=== PATIENT | male | born 1995 | race Caucasian/White ===

== ENCOUNTER 2024-10-26 00:38 | Emergency (ER) | payer SELFPAY ==
[~2024-10-26] VITALS: Ht 167.6 cm; Wt 77.0 kg
[2024-10-26 00:41] VITALS: O2SAT 100
[2024-10-26] MEDS ORDERED: FLUORESCEIN SODIUM 1MG/STRIP RIGHTEYE ONE (04:00)
[2024-10-26] MEDS ORDERED: TETRACAINE 0.5% OPHTH DROPS 4ML BOTHEYE ONE (04:00)
[2024-10-26] MEDS ORDERED: IBUPROFEN 600MG TABLET PO ONE (04:00)
[2024-10-26] MEDS ORDERED: BRIM2.5D OP (05:37)
[2024-10-26 05:47] VITALS: BP 130/76; PULSE 100; RESP 18; TEMP 36.9; O2SAT 98
== END 2024-10-26 05:49 | disposition home or self-care (01) ==
LOC: ER 00:38
DX: S00.511A Abrasion of lip, initial encounter (principal); H11.30 Conjunctival hemorrhage, unspecified eye; H02.843 Edema of right eye, unspecified eyelid; Z79.899 Other long term (current) drug therapy; Y04.0XXA Assault by unarmed brawl or fight, initial encounter; Y93.89 Activity, other specified; Y92.89 Other specified places as the place of occurrence of the external cause; Y99.8 Other external cause status
CPT/HCPCS: 99283